=== PATIENT | female | born 1970 | race Caucasian/White ===

== ENCOUNTER 2019-08-18 07:46 | Observation (INO) ==
--- NOTE | 2019-08-02 08:46 | PAT Medication Instructions ---
Medication Instructions Date of Service August 02, 2019 Home Medications multivitamin,[id number] 1 tab PO HS biotin 2,500 mcg PO HS iron 45 mg PO HS norethindrone-e.estradiol-iron [ Fe 24] 1 tab PO HS acetaminophen [Tylenol Extra Strength] 500 - 1,000 mg PO Q6H PRN Take evening before surgery multivitamin,jg-[id number] 1 tab PO HS biotin 2,500 mcg PO HS iron 45 mg PO HS norethindrone-e.estradiol-iron [ 24] 1 tab PO HS acetaminophen [Tylenol Extra Strength] 500 - 1,000 mg PO Q6H PRN (if needed) NOTHING TO EAT OR DRINK AFTER MIDNIGHT. Other Notes If you have any questions please call us at [phone] or [phone] or [phone] or [phone]
--- NOTE | 2019-08-02 10:04 | Anesthesiology Consultation ---
Date of Service August 02, 2019 Assessment & Plan (1) Encounter for pre-operative examination: TEST AM DOS COVID Status: As of nurse interview 07/31, patient denies any travel outside [facility], known exposure/contacts, symptoms, or testing for coronavirus. Chart Review Chart Review: Acceptable Risk for Surgery and Patient seen in Pre Admission Testing Teaching & Discussion Instructed NPO after midnight before surgery, except medications with 15 cc of w ater. Medication instructions provided according to the PAT guidelines. History Surgery Operation Date: 08/18/19 09:50 Proposed Procedures p Robotic Total Laparoscopic Hysterectomy - Kam Dewey MD Height/Weight Height: 5 ft 3 in Weight: 68 kg Allergies Allergy/AdvReac Type Severity Reaction Status Date / Time Penicillins Allergy Intermediate Unknown- Verified 08/02/19 08:45 Childhood reaction Medications Home Medications Medication Instructions Recorded Confirmed Last Taken multivitamin,ix-bofz-sdnhhmni 1 tab PO HS 05/31/19 08/02/19 06/17/19 biotin 2,500 mcg PO HS 06/18/19 08/02/19 06/17/19 iron 45 mg PO HS 06/18/19 08/02/19 06/17/19 norethindrone-e.estradiol-iron 1 tab PO HS 06/18/19 08/02/19 06/17/19 [Junel Fe 24] acetaminophen [Tylenol Extra 500 - 1,000 mg PO Q6H PRN 07/26/19 08/02/19 Unknown Strength] Past Medical History Medical History Anemia R/T MENSTRUAL PERIODS. HAS BEEN BETTER SINCE STARTING CONTROL. Radiculopathy LEFT INDEX FINGER D/T PINCHED NERVE IN CERVICAL SPINE. HAS BEEN SEEING A CHIROPRACTOR. Exercise / Class Metabolic Activity II 4-5 Yardwork/Stairs/Walk up hill Past Family History Family History Denies family history of Ovarian cancer Breast cancer Colorectal cancer Past Surgical History Surgical History S/P tubal ligation Past Anesthesia History No Hx of Anesthesia Complications and No Family Hx of Anesthesia Complications History of PONV No Hx of PONV and Hx of Motion Sickness Social History Smoking Status: Never smoker Do You Dip or Chew Tobacco: No Hx Alcohol Use: Yes Alcohol type: hard liquor alcohol intake frequency: holidays/special occasions only Alcohol Intake Frequency Comment: RARELY Hx Substance Use: No Review of Systems Pt denies any recent chest pain, shortness of breath, palpitations, cough, fever or URI. Physical Exam Vital Signs BP: 114/64 P: 75bpm SPO2: 97% RA T: 98.4 F R: 16 ENMT Mouth: + dental restorations (Few crowns); no chipped teeth and no loose teeth Thyromental Distance: < 3.5 Finger Breadths (3) Mallampati Class: II Neck normal visual inspection; neck extension not limited (but does have cervical radiculopathy) Respiratory normal respiratory effort Auscultation: lungs clear to auscultation bilaterally Cardiovascular Rate/Rhythm: regular rate and regular rhythm Heart Sounds: no murmur Extremities: no edema Testing Laboratory Results 08/02/19 10:13 Blood Type O Positive 08/02/19 10:13 Antibody Screen NEGATIVE 08/02/19 10:13
[2019-08-02 10:27] LABS: Basophils # (auto) 0.02 K/uL (0-0.2); Basophils % (auto) 0.2 %; Eosinophils # (auto) 0.05 K/uL (0-0.5); Eosinophils % (auto) 0.6 %; Hematocrit (blood only) 43.5 % (37-47); Hemoglobin 14.9 g/dL (12.0-16.0); Immature Granulocytes # (auto) 0.02 K/uL (0.00-0.02); Immature Granulocytes % (auto) 0.2 %; Lymphocytes # (auto) 1.92 K/uL (1.2-3.4); Lymphocytes % (auto) 22.8 %; Mean Corpuscular Hemoglobin 29.6 pg (25-34); Mean Corpuscular Hgb Conc 34.3 g/dL (32-36); Mean Corpuscular Volume 86.5 fL (80-100); Mean Platelet Volume 9.1 fL (7.4-10.4); Monocytes # (auto) 0.41 K/uL (0.11-0.59); Monocytes % (auto) 4.9 %; Neutrophils # (auto) 6.01 K/uL (1.4-6.5); Neutrophils % (auto) 71.3 %; Platelet Count 368 K/uL (130-400); RDW Coefficient of Variation 15.9 % (11.5-14.5); RDW Standard Deviation 50.2 fL (36.4-46.3); Red Blood Count 5.03 M/uL (4.2-5.4); White Blood Count 8.43 K/uL (4.8-10.8)
[~2019-08-18 07:46] MED LIST: CEFAZOLIN 2000MG 2,000 MG/15 ML SYR IV SCH; LR 15ML/HR IV SCH; PHENAZOPYRIDINE HCL 100 MG TAB PO SCH
[2019-08-18] MEDS ORDERED: fentaNYL citrate 100 MCG/2 ML VIAL ONE ×2 (07:53→10:28)
[2019-08-18] MEDS ORDERED: MIDAZOLAM HCL 1 MG/ML 2ML VIAL ONE (07:53)
[2019-08-18] MEDS ORDERED: DEXAMETHASONE SOD INJ 4 MG/ML VIAL ONE (08:01)
[2019-08-18] MEDS ORDERED: LIDOCAINE HCL 2% 2 ML VIAL/AMP(20MG/ML) INFIL ONE (08:01)
[2019-08-18] MEDS ORDERED: GLYCOPYRROLATE 0.2 MG/ML VIAL ONE (08:01)
[2019-08-18] MEDS ORDERED: PROPOFOL IV EMULSION 10 MG/ML 20 ML VIAL IV ONE (08:01)
[2019-08-18] MEDS ORDERED: NEOSTIGMINE METHYLSULFATE 5 MG/5 ML SYR ONE (08:01)
[2019-08-18] MEDS ORDERED: ROCURONIUM BROMIDE 10 MG/ML 5 ML VIAL ONE (08:01)
[2019-08-18] MEDS ORDERED: ONDANSETRON INJ 2 MG/ML 2 ML VIAL ONE (08:01)
[2019-08-18] MEDS: LACTATED RINGER'S 1,000 ML IV SCH ×2 (08:25→13:49)
[2019-08-18 08:30] LABS: Basophils # (auto) 0.02 K/uL (0-0.2); Basophils % (auto) 0.3 %; Eosinophils # (auto) 0.07 K/uL (0-0.5); Eosinophils % (auto) 0.9 %; Hematocrit (blood only) 39.5 % (37-47); Hemoglobin 13.7 g/dL (12.0-16.0); Immature Granulocytes # (auto) 0.02 K/uL (0.00-0.02); Immature Granulocytes % (auto) 0.3 %; Lymphocytes # (auto) 2.11 K/uL (1.2-3.4); Lymphocytes % (auto) 27.1 %; Mean Corpuscular Hemoglobin 30.2 pg (25-34); Monocytes # (auto) 0.49 K/uL (0.11-0.59); Monocytes % (auto) 6.3 %; Neutrophils # (auto) 5.09 K/uL (1.4-6.5); Neutrophils % (auto) 65.1 %; Platelet Count 344 K/uL (130-400); RDW Coefficient of Variation 14.1 % (11.5-14.5); RDW Standard Deviation 44.4 fL (36.4-46.3); Red Blood Count 4.54 M/uL (4.2-5.4)
[2019-08-18] MEDS ORDERED: SCOPOLAMINE 1.5 MG TDSY TD ONE ×2 (08:34→08:37)
[2019-08-18 08:38] LABS: Mean Corpuscular Hgb Conc 34.7 g/dL (32-36)
[2019-08-18] MEDS ORDERED: ONDANSETRON INJ 2 MG/ML 2 ML VIAL IV PRN ×2 (08:38→11:26)
[2019-08-18] MEDS ORDERED: ATROPINE SULFATE 0.1 MG/ML 10ML SYR IV PRN (08:38)
[2019-08-18] MEDS ORDERED: ePHEDrine sulfate 50 MG/ML AMP IV PRN (08:38)
[2019-08-18] MEDS ORDERED: BUPIVACAINE 0.5 % 5 MG/1 ML MPF 30ML VIAL ONE (08:48)
--- NOTE | 2019-08-18 08:54 | History & Physical Bridge Note ---
Date of Service August 18, 2019 History & Physical Bridge Note I have examined the patient, reviewed the History & Physical and in the interval since the performance of the History & Physical I have noted the following changes of clinical significance: no changes noted
[2019-08-18] MEDS ORDERED: CEFAZOLIN 1,000 MG/7.5 ML IV PUSH IV ONE ×2 (08:58→08:59)
[2019-08-18] MEDS ORDERED: TISSEEL FIBRIN SEALANT 4ML TOP ONE (10:33)
[2019-08-18] MEDS ORDERED: OXYCODONE/ACETAMINOPHEN 5mg/325mg TAB PO PRN (11:26)
[2019-08-18] MEDS ORDERED: ACETAMINOPHEN 325 MG TAB PO PRN (11:26)
--- NOTE | 2019-08-18 11:27 | Post Operative Brief Note ---
PG Immediate Post Op with CF Date of Surgery August 18, 2019 Pre & Post Diagnosis Operation Date: 08/18/19 09:10 Pre-Op Diagnosis: Uterine Fibroid Menorrhagia Post-Op Diagnosis: Uterine Fibroid Menorrhagia I identified the patient and participated in the time-out.: Yes Procedure Operation Date: 08/18/19 09:10 Actual Procedures p Robotic Total Laparoscopic Hysterectomy, bilateral salpingectomy, cystoscopy - Kam Dewey MD Surgeon Kam Dewey MD [employer] None Estimated Blood Loss 30 Findings Consistent with Post-Op Diagnosis Specimens Specimen Description: Permanent Specimen: A: Cervix, uterus, bilateral fallopian tubes Drains Moreno Catheter
[2019-08-18] MEDS: fentaNYL citrate 100 MCG/2 ML VIAL IV PRN ×4 (11:53→12:08)
--- NOTE | 2019-08-18 12:21 | Operative Report (OR) ---
DATE OF OPERATION: 08/18/2019 PROCEDURE: Robotic-assisted total laparoscopic hysterectomy, bilateral salpingectomy and cystoscopy. SURGEON: Kam Dewey MD. PREOPERATIVE DIAGNOSES: 1. Abnormal uterine bleeding. 2. Enlarged fibroid uterus. 3. Suspected adenomyosis. 4. Severe dysmenorrhea. POSTOPERATIVE DIAGNOSES: 1. Abnormal uterine bleeding. 2. Enlarged fibroid uterus. 3. Suspected adenomyosis. 4. Severe dysmenorrhea. 5. Status post procedure. ESTIMATED BLOOD LOSS: 30 mL. DRAINS: Moreno catheter. FLUIDS: Continuous lactated Ringer. URINE OUTPUT: Per Moreno catheter. COMPLICATIONS: None. FINDINGS: There is noted to be an enlarged fibroid uterus with multiple 1-2 cm size fibroids. Both ovaries were grossly normal appearing. There were noted to be tubal remnants both in the distal portion and in the proximal portion, both of which were removed. Abdomen was otherwise unremarkable. DESCRIPTION OF PROCEDURE: The patient was taken to the operating room after consents were ensured. Upon presentation, she was properly identified. General endotracheal anesthesia was obtained without difficulty. The patient was then prepped and draped in the normal sterile fashion. A preprocedural timeout was then performed. A Moreno catheter was placed, after which a speculum was placed in the vagina. Cervix was visualized. Single tooth tenaculum placed on the anterior cervix and a [employer] uterine manipulator was placed per certified tower climber specifications. The laparoscopic portion of the case was then initiated. A 12 mm incision was made at the superior aspect of the umbilicus and the abdomen was then insufflated with the Veress needle. There was noted to be a low opening pressure of 1 mmHg. There was noted to be symmetric abdominal rise and tympany over the liver consistent with appropriate intra-abdominal insufflation. After insufflated to 15 mmHg, an optically guided trocar was introduced through the incision with atraumatic entry noted upon visualization. The abdomen was then inspected and 8 mm trocars were placed in the right and left lower quadrants and an 8 mm trocar was also placed in the left upper quadrant. The robot was then docked and the robotic portion of the procedure was initiated. The right round ligament was identified, cauterized and serially dissected. The right uteroovarian vessel was identified and cauterized and serially dissected back to the level of the dissected round ligament. A bladder flap was then created anteriorly starting with the left side, then at this time the broad ligament was then dissected down to the level of the uterine vessels. The left side of the uterus was then visualized and the left round ligament was cauterized and serially dissected. The uteroovarian vessel was identified, serially cauterized dissected back to the level of the round ligament. The bladder flap was then continued anteriorly connecting with the right bladder flap. The broad ligament was then dissected down to the level of the uterine vessels. The bladder was then dissected off the lower uterine segment and cervix and was noted to be quite distal to the VCare cup. The right and left uterine vessels were then serially cauterized and dissected. The colpotomy was started anteriorly, continued circumferentially around the cervix, freeing the cervix from the vagina. The uterus was then delivered through the vagina without difficulty. The vaginal cuff was then closed with V-Loc suture in continuous running stitch. The abdomen was suction irrigated and noted to be hemostatic. A cystoscopy was then performed and there was noted to be bilateral ureteral efflux and intact bladder on cystoscopy. 4 mL of Tisseel was then distributed throughout the raw edges of the vaginal cuff as well as of the vascular pedicles. The robot was then undocked. Trocars were removed. In the umbilical incision, fascia was then closed with interrupted stitch of 0 Vicryl. The skin was reapproximated all incisions with 4-0 Vicryl. Needle, sponge and instrument counts were correct at the completion of the case. Dermabond was placed on top of the incisions. The patient was awoken from anesthesia and taken to recovery room in stable condition. I attest to the content of the Intraoperative Record and any orders documented therein. Any exception s are noted below.
--- NOTE | 2019-08-18 12:45 | Anesthesiology Progress Note ---
Date of Service August 18, 2019 Anesthesia Post Procedure Vital Signs Vital Signs: Temp Pulse Pulse Resp BP Pulse Ox 08/18/19 12:20 97.3 F L 67 12 117/75 99 08/18/19 12:10 71 16 117/75 96 08/18/19 12:00 65 16 122/81 100 08/18/19 11:50 67 15 135/79 100 08/18/19 11:40 62 19 130/69 100 08/18/19 11:33 97.7 F 66 10 L 137/83 97 08/18/19 08:08 98.4 F 81 18 134/92 97 Pain Intensity Right Lower Back: Pain Intensity: 2 Abdomen: Pain Intensity: 4 Transfer of Care Handoff Completed per policy Notes Mental Status: alert / awake / arousable and participated in evaluation Patient Amnestic to Procedure: Yes Nausea / Vomiting: adequately controlled Pain: adequately controlled Airway Patency, RR, SpO2: stable & adequate BP & HR: stable & adequate Hydration State: stable & adequate Anesthetic Complications: no major complications apparent and Pt Satisfied with anesthetic care
[2019-08-18] MEDS: CHECK SCOPOLAMINE PATCH PLACEMENT SCH ×2 (13:47→16:00)
[2019-08-18] MEDS: OXYCODONE/ACETAMINOPHEN 5mg/325mg TAB PO PRN ×2 (14:52→18:55)
[2019-08-18] MEDS: IBUPROFEN 600 MG TAB PO PRN ×2 (15:39→21:39)
[2019-08-18] MEDS: DOCUSATE SODIUM 100 MG CAP PO SCH (21:38)
[2019-08-19] MEDS: IBUPROFEN 600 MG TAB PO PRN ×2 (01:57→07:55)
[2019-08-19 06:32] LABS: Hematocrit (blood only) 36.3 % (37-47); Hemoglobin 12.2 g/dL (12.0-16.0)
[2019-08-19] MEDS: DOCUSATE SODIUM 100 MG CAP PO SCH (07:51)
[2019-08-19] MEDS ORDERED: OXYCODONE HCL IR 5 MG TAB (IMMEDIATE RELEASE) PO PRN (07:55)
--- NOTE | 2019-08-19 08:04 | Gynecologic Progress Note ---
Date of Service August 19, 2019 Assessment & Plan (1) Post-operative state: Post operative day 1 from [facility]. Doing well. stable for discharge Admission and Anticipated Discharge Date Admission Date: August 18, 2019 Subjective Patient doing well. Meeting post operative goals Physical Exam Respiratory: normal respiratory effort, lungs clear to auscultation Cardiovascular: RRR, no murmur, no edema Gastrointestinal (Abdomen): Percussion/Palpation: abdomen soft; abdomen nontender, no guarding and abdomen not rigid Results & Data ([facility]) Vital Signs (Past 12 Hours) Vital Signs Temp Pulse Resp BP Pulse Ox 08/19/19 04:11 36.7 C 70 18 99/57 L 08/18/19 23:25 36.9 C 64 18 115/71 98 PG Care Time/CCT Total # of Minutes Spent Total Time Spent with Patient: Total time spent is greater than 50% in coordination of care (as documented) at patient's floor/unit and/or counseling patient: Coding Level of Care Code None Diagnoses Post-operative state Z98.890
--- NOTE | 2019-08-21 20:57 | Discharge Summary (DS) ---
PROCEDURE WHILE ADMITTED: Total laparoscopic hysterectomy. HOSPITAL COURSE: The patient was admitted for a total laparoscopic hysterectomy which was performed without complication. The patient remained in house for recovery until postoperative day 1 at which time she was discharged home in stable condition. No concerns or complications arose during her procedure or recovery course. The patient was provided with both written and verbal discharge instructions and is planned for followup in 2 weeks. CONTRERAS
== END 2019-08-19 09:24 | disposition home or self-care (01) ==
LOC: ASU 07:46 → 4N 07:46